=== PATIENT | male | born 1950 | race Caucasian/White ===

== ENCOUNTER 2024-12-18 09:43 | Outpatient (CLI) | payer OTHER, SELFPAY | END 2024-12-18 09:44 | disposition home or self-care (01) | LOC: RAD 09:50 | PROVIDERS: PCP Chiropractor; Visit Provider Chiropractor | DX: I11.9 Hypertensive heart disease without heart failure (principal); I51.7 Cardiomegaly; I34.0 Nonrheumatic mitral (valve) insufficiency | CPT/HCPCS: 93306 ==